=== PATIENT | male | born 1955 | race Caucasian/White ===

== ENCOUNTER 2019-09-29 18:38 | Emergency (ER) | payer MEDICAID ==
[~2019-09-29] VITALS: Ht 170.2 cm; Wt 77.1 kg
[2019-09-29 18:39] VITALS: BP_SYST 140
[2019-09-29 18:52] VITALS: BP_SYST 140
== END 2019-09-29 18:51 | disposition home or self-care (01) ==
LOC: SED 18:38
DX: R40.1 Stupor (principal); F12.90 Cannabis use, unspecified, uncomplicated; T40.1X1A Poisoning by heroin, accidental (unintentional), initial encounter; Y92.89 Other specified places as the place of occurrence of the external cause
CPT/HCPCS: 99283